=== PATIENT | male | born 1970 | race Caucasian/White ===

== ENCOUNTER → 2018-09-07 | Outpatient (CLI) | payer OTHER | LOC: FIMAGING 11:35 | PROVIDERS: ATTEND Orthopaedic Surgery Hand Surgery | DX: S46.011A Strain of muscle(s) and tendon(s) of the rotator cuff of right shoulder, initial encounter (principal); S46.211A Strain of muscle, fascia and tendon of other parts of biceps, right arm, initial encounter; M25.411 Effusion, right shoulder ==

== ENCOUNTER 2018-11-14 05:43 | Day surgery (SDC) | payer OTHER ==
--- NOTE | 2018-11-09 13:50 | SOAPPROG ---
SOAP Progress Note Assessment/Plan: H&P Name SHAUNNA IBRAHIM (48yo, M) ID# [id number] 1970 Service Dept[address] MAIN OFFICE Provider ZHEN CUELLAR PA-C Insurance Med Primary: [employer] (MEDICARE REPLACEMENT/ADVANTAGE - HMO) Insurance # : [id number] Prescription: DSTPSDIR - Member is eligible. details Chief Complaint Patient presents today to review his right shoulder MRI to evaluate for a massive RCT. Patient doing well but continues to have a lot of discomfort. Vitals None recorded. Allergies Reviewed Allergies NKDA Medications Reviewed Medications ELBOW SUPPORT 08/31/18 filled [facility] KNEE SUPPORT XL 08/31/18 filled [facility] PLASTIC BANDAGES - 200 COUNT 08/31/18 filled [facility] Simponi 50 mg/0.5 mL subcutaneous syringe 10/02/18 filled [facility] VITAMIN E 400 IU SYNTHETIC 08/31/18 filled [facility] Vaccines None recorded. Problems Reviewed Problems Arthritis of acromioclavicular joint - Onset: 09/18/2018 Biceps tendinitis - Onset: 09/18/2018, Right Subacromial impingement - Onset: 09/18/2018, Right Full thickness rotator cuff tear - Onset: 08/21/2018, Right Family History Reviewed Family History Mother - Arthritis - Heart disease Father - Arthritis - Heart disease - Malignant neoplastic disease Social History Reviewed Social History Smoking Status: Former smoker Occupation: on disability Alcohol intake: Occasional Alcohol-years of use: 25 Caffeine intake: Moderate Exercise level: Occasional Hand Dominance: Right Education: 12 Live alone or with others?: with others Surgical History Reviewed Surgical History Orthopaedic Surgery - 10/03/2007 Orthopaedic Surgery - 10/03/2006 Past Medical History Reviewed Past Medical History Arthritis: Y Screening None recorded. HPI This is a very pleasant 48 year old male with a significant history for ankylosing spondylitis and: LEFT: - two previous left shoulder arthroscopies RIGHT: - 11/01/07 -- right shoulder arthroscopy with SAD and labral debridement - 03/06/09 -- right shoulder MRI -- supraspinatus and infraspinatus tendinosis, full thickness tear distal supraspinatus - 08/20/18 -- increase in right shoulder pain and swelling following a fall onto his outstretched RU - 09/07/18 -- Right shoulder MRI -- Large full-thickness supraspinatus tendon tear with retraction and moderate muscular atrophy, partial tear distal subscapularis tendon, cephalad fibers, moderate tear long head biceps tendon through the rotator interval, undersurface distal infraspinatus tendinosis at the greater tuberosity, large right shoulder effusion, and acromioclavicular degenerative hyperostosis He presents today to discuss his treatment options. ROS ROS as noted in the HPI Physical Exam Patient is a 48-year-old male. Bilateral shoulder examination Inspection/palpation: Right: TTP overlying the SAS Left: Normal resting posture Shoulder ROM (R / L / Normal) Forward flexion: 20 / 170 / 170 Abduction: 20 / 160 / 160 Extension: 10 / 40 / 40 Shoulder strength (R / L / Normal) Deltoid : 4 / 5 / 5 Biceps: 5 / 5 / 5 Shoulder sensory (R / L / Normal) Axillary: + / + / + Assessment / Plan This is a very pleasant 48 year old male with a significant history for ankylosing spondylitis and: LEFT: - two previous left shoulder arthroscopies RIGHT: -11/01/07 -- right shoulder arthroscopy with SAD and labral debridement -03/06/09 -- right shoulder MRI -- supraspinatus and infraspinatus tendinosis, full thickness tear distal supraspinatus -08/20/18 -- increase in right shoulder pain and swelling following a fall onto his outstretched RUE -- s/s c/w a massive RCT - 09/07/18 -- Right shoulder MRI -- Large full-thickness supraspinatus tendon tear with retraction and moderate muscular atrophy, partial tear distal subscapularis tendon, cephalad fibers, moderate tear long head biceps tendon through the rotator interval, undersurface distal infraspinatus tendinosis at the greater tuberosity, large right shoulder effusion, and acromioclavicular degenerative hyperostosis For the right shoulder: - I have discussed with the patient the risks, benefits, alternatives and complications associated with both non-operative (specifically, observation) and operative (specifically, right shoulder arthroscopy with SAD, DCE, labral debridement, LHB tenotomy and/or tenodesis, and rotator cuff debridement and/or repair) forms of treatment - The patient fully understands the risks, benefits, alternatives, and complications associated with these forms of treatment and wishes to proceed with operative intervention as outlined above. - He has signed the informed consent form for surgery and surgery will be scheduled for the near future. 1. Pain of right shoulder joint M25.511: Pain in right shoulder 2. Full thickness rotator cuff tear - Right M75.121: Complete rotator cuff tear or rupture of right shoulder, not specified as traumatic 3. Subacromial impingement - Right M75.41: Impingement syndrome of right shoulder 4. Arthritis of acromioclavicular joint M13.819: Other specified arthritis, unspecified shoulder 5. Biceps tendinitis - Right M75.21: Bicipital tendinitis, right shoulder 11/09/18 13:50 ICD10 Worksheet Patient Problems: Problems Problem Status Onset Right shoulder pain Acute - ICD10 Problem Qualifiers (1) Right shoulder pain
[2018-11-14] MEDS ORDERED: LR 1,000 ML IV ONE (06:08)
[2018-11-14] MEDS ORDERED: LIDOCAINE 1% 2 ML INJ ID PRN (06:08)
[2018-11-14] MEDS ORDERED: ceFAZolin 2 GM/DEXTROSE 100 ML IV ONE (06:50)
--- NOTE | 2018-11-14 06:50 | PDHPUP ---
History & Physical Update H&P update statement: This history and physical update is based on an assessment of the patient which was completed after admission or registration (within 24 hours), but prior to the surgery/procedure. H&P update: H&P reviewed & patient examined, no change in patient's condition since H&P completed
[2018-11-14] MEDS ORDERED: CEFAZOLIN 1 GM/DEXTROSE/50 ML BAG IV ONE (06:55)
--- NOTE | 2018-11-14 06:58 | PDANEPAE ---
ANE Past Medical History - Cardiovascular History Hx Hypertension: No Hx Arrhythmias: No Hx Chest Pain: No Hx Coronary Artery / Peripheral Vascular Disease: No Hx CHF / Valvular Disease: No Hx Palpitations: No - Pulmonary History Hx COPD: No Hx Asthma/Reactive Airway Disease: No Hx Recent Upper Respiratory Infection: No Hx Oxygen in Use at Home: No Hx Sleep Apnea: Yes Sleep Apnea Screening Result - Last Documented: Positive Pulmonary History Comment: MILD SLEEP APNEA DX IN PAST - NO CPAP - Neurologic History Hx Cerebrovascular Accident: No Hx Seizures: No Hx Dementia: No - Endocrine History Hx Diabetes: No - Renal History Hx Renal Disorders: No - Liver History Hx Hepatic Disorders: No - Neurological & Psychiatric Hx Hx Neurological and Psychiatric Disorders: No - Cancer History Hx Cancer: No - Congenital Disorder History Hx Congenital Disorders: No - GI History Hx Gastrointestinal Disorders: No - Other Health History Other Health History: ANKYLOSING SPONYLITIS - Chronic Pain History Chronic Pain: Yes (SPINE,NECK,SHOULDERS) - Surgical History Prior Surgeries: SHOULDER L X2. CARPAL TUNNEL L. SHOULDER X1 ANE Review of Systems Review of Systems: - Exercise capacity METS (RN): 4 METS ANE Patient History - Allergies Allergies/Adverse Reactions: No Known Allergies Allergy (Verified 08/14/15 09:48) - Home Medications Home Medications: Herbals/Supplements -Info Only 11/06/18 [Last Taken 11/07/18] - NPO status NPO Since - Liquids (Date): 11/13/18 NPO Since - Liquids (Time): 22:30 NPO Since - Solids (Date): 11/13/18 NPO Since - Solids (Time): 19:00 - Smoking Hx Smoking Status: Former smoker ANE Labs/Vital Signs - Vital Signs Blood Pressure: 121/79 Heart Rate: 63 Respiratory Rate: 18 O2 Sat (%): 95 Height: 182.88 cm Weight: 107.955 kg ANE Physical Exam - Airway Neck exam: FROM Mallampati Score: Class 2 Mouth exam: normal dental/mouth exam - Pulmonary Pulmonary: no respiratory distress - Cardiovascular Cardiovascular: regular rate and rhythym - ASA Status ASA Status: II ANE Anesthesia Plan Anesthesia Plan: GA w LMA Regional Anesthesia: single shot NB
[2018-11-14] MEDS ORDERED: MIDAZOLAM 2 MG/2 ML VIAL IVP ONE (07:05)
[2018-11-14] MEDS ORDERED: BUPIVACAINE 0.5% 30 ML SDV ONE (07:06)
[2018-11-14] MEDS ORDERED: EPINEPHrine 30 MG/30 ML MDV (0.1 MG/0.1 ML) ONE (07:06)
[2018-11-14] MEDS ORDERED: LIDO/EPI 1% **for epidural** 30 ML SDV ONE (07:06)
[2018-11-14] MEDS ORDERED: BUPIVACAINE/EPI 0.5% 30 ML SDV ONE (07:11)
[2018-11-14] MEDS ORDERED: fentaNYL 100 MCG/2 ML INJ ONE ×5 (07:13→10:38)
[2018-11-14] MEDS ORDERED: LIDOCAINE 2% 100 MG/5 ML SYR ONE (07:13)
[2018-11-14] MEDS ORDERED: DEXAMETHASONE 4 MG/ML VIAL ONE ×2 (07:13)
[2018-11-14] MEDS ORDERED: PROPOFOL 200 MG/20 ML VIAL ONE (07:13)
[2018-11-14] MEDS ORDERED: ONDANSETRON 4 MG/2 ML VIAL ONE (07:14)
[2018-11-14] MEDS ORDERED: PHENYLEPHRINE 10 MG/ML SDV ONE (08:08)
[2018-11-14] MEDS ORDERED: NALOXONE HCL 0.4 MG/ML INJ IVP PRN (10:34)
[2018-11-14] MEDS ORDERED: fentaNYL 100 MCG/2 ML INJ IVP PRN (10:34)
[2018-11-14] MEDS ORDERED: HYDROCODONE/APAP 5/325 TAB PO PRN (10:34)
[2018-11-14] MEDS ORDERED: ALBUTEROL 3 ML DEYVIAL IH PRN (10:34)
[2018-11-14] MEDS ORDERED: ACETAMINOPHEN 500 MG TAB PO PRN (10:34)
[2018-11-14] MEDS ORDERED: ONDANSETRON 4 MG/2 ML VIAL IVP PRN (10:34)
[2018-11-14] MEDS ORDERED: MEPERIDINE 25 MG/0.5 ML AMP IVP PRN (10:34)
[2018-11-14] MEDS ORDERED: HYDROmorphONE/DILAUDID 2 MG/ML INJ IVP PRN (10:34)
[2018-11-14] MEDS ORDERED: KETOROLAC 30 MG/1 ML SDV ONE (10:40)
--- NOTE | 2018-11-14 11:08 | POSTANESTH ---
Post Anesthetic Evaluation Cardiovascular Status: Similar to Pre-Op Cond Respiratory Status: Similar to Pre-op Cond. Level of Consciousness/Mental Status: Mildly Sleepy, Arousable Pain Control: Adequate, Prn Tx Ordered Nausea/Vomiting Control: Adequate, Prn Tx Ordered Complications Possibly Related to Anesthesia: None Noted
[2018-11-14] MEDS ORDERED: HYDROCODONE/APAP 5/325 TAB ONE (12:28)
[2018-11-14 13:41] VITALS: BP 127/83
--- NOTE | 2018-11-19 07:11 | GOP ---
[f rep st] OPERATIVE REPORT PATIENT: RUCHI IBRAHIM DATE OF SERVICE: 11/14/18 PATIENT DATE OF : 1970 SURGEON: Anthony Hay M.D. KNOCK UP ASSEMBLER: Zoie Mendoza PA-C Mrs. Titus assistance was medically necessary for patient positioning and the retraction of vital structures. ANESTHESIA: General / regional PRE-OPERATIVE DIAGNOSES: Right shoulder subacromial impingement (ICD-10 code M75.51 -- right shoulder bursitis) Right shoulder acromioclavicular joint arthritis (ICD-10 code M13.111 -- right shoulder acromioclavicular joint arthritis) Right shoulder SLAP tear (ICD-10 code S43.431D -- right shoulder superior glenoid labrum lesion) Right shoulder biceps tendinitis (ICD-10 code M75.21 -- right shoulder bicipital tendinitis) Right shoulder rotator cuff tear (ICD-10 code S46.001A -- right shoulder rotator cuff tear) POST-OPERATIVE DIAGNOSES: Right shoulder subacromial impingement (ICD-10 code M75.51 -- right shoulder bursitis) Right shoulder acromioclavicular joint arthritis (ICD-10 code M13.111 -- right shoulder acromioclavicular joint arthritis) Right shoulder SLAP tear (ICD-10 code S43.431D -- right shoulder superior glenoid labrum lesion) Right shoulder biceps tendinitis (ICD-10 code M75.21 -- right shoulder bicipital tendinitis) Right shoulder rotator cuff tear (ICD-10 code S46.001A -- right shoulder rotator cuff tear) OPERATIVE PROCEDURES: CPT code 61594 - Right shoulder arthroscopic subacromial decompression CPT code 54369 - Right shoulder arthroscopic debridement, extensive CPT code 73643 - Right shoulder arthroscopic distal clavicle excision CPT code 48181 - Right shoulder arthroscopic rotator cuff repair CPT code 26933 - Right shoulder long head of biceps tenotomy CPT code 74934 Right shoulder subpectoral biceps tenodesis EBL: 3cc COMPLICATIONS: None IMPLANTS: Two Arthrex 5.5mm bio-composite corkscrew anchors triple loaded with # 2 Fiber Wire, two Arthrex 4.75mm bio-composite Swivel-Lock anchors, one Arthrex proximal biceps tenodesis button with #2 Fiber Wire BRIEF CLINICAL NOTE: This is a very pleasant 48 year old male with a significant history for right shoulder subacromial impingement, acromioclavicular joint arthritis, labral tears, long head of biceps tendinitis , and a rotator cuff tear. As such, I have discussed the risks, benefits, alternatives, and complications associated with both non-operative (specifically , observation, activity modifications, NSAIDs, PT, injection) and operative ( specifically, right shoulder arthroscopy with subacromial decompression, distal clavicle excision, labral debridement, long head of biceps tenotomy and/or tenodesis and rotator cuff debridement and/or repair) forms of treatment. The patient fully understands the risks, benefits, alternatives, and complications associated with both forms of treatment and wishes to proceed with operative intervention as outlined above. The patient has signed the informed consent form for surgery. OPERATIVE NOTE: On the day of surgery, all of the patients questions were answered. The patient was then transferred from the pre-operative area into the operating room and a formal, Time-Out procedure was performed. The patient was identified by name, medical record number, social security number, and date of . In addition, the patients right upper extremity was identified as the correct portion of the patients body for surgery with the patients right shoulder being identified as the correct portion of that extremity for surgery. The anesthesia team administered pre-operative antibiotics for prophylaxis. The patient was then transferred to the operating room table and placed in the beach chair position while padding all bony prominences. The extremity was then prepped and draped in the normal sterile fashion. A sterile marking pen was utilized to markie out standard posterior, lateral, and anterior arthroscopic portal incisions. An 18-gauge spinal needle was used to localize the glenohumeral joint through the posterior portal site and the joint was insufflated with 60cc of a 50:50 mixture of 1% lidocaine with 1:200,000 components of epinephrine and normal saline. A number 11-blade was utilized to incise the skin at the posterior portal site. The blunt obturator and arthroscopic cannula were then advanced through the posterior portal incision into the glenohumeral joint. The arthroscope was inserted and the shoulder was brought into external rotation. An 18-gauge spinal needle was used to locate the anterior portal site with outside-in technique. A medium-sized Mytrusrex corkscrew cannula was inserted through the anterior portal site. A diagnostic arthroscopy was performed in the glenohumeral space. The following structures were identified and examined with the following findings: Glenohumeral diagnostic arthroscopy Glenoid: mild degenerative changes Humeral head: mild degenerative changes Glenoid labrum Anterior labrum: degenerative fraying Superior labrum: degenerative fraying Posterior labrum: intact Inferior labrum: intact Biceps tendon: high-grade partial tearing Glenohumeral ligaments: SGHL: intact MGHL: intact AIGHL: intact PIGHL: intact Undersurface of rotator cuff: Subscapularis: intact Supraspinatus: full thickness tear Infraspinatus: full thickness tear anteriorly A 4.0mm aggressive cutter was inserted through the anterior portal and an extensive debridement was performed within the glenohumeral joint including the glenoid, the humeral head, and the labrum. The cautery wand was inserted through the anterior portal and the long head of the biceps tendon was released off of the supraglenoid tubercle (long head of biceps tenotomy). The arthroscope was then removed from the glenohumeral joint and the posterior cannula was re-directed into the subacromial space. The arthroscope was re- inserted into the posterior cannula. An 18-gauge spinal needle was used to localize a straight lateral portal with outside-in technique. A large Arthrex corkscrew cannula was inserted through the lateral portal incision. The 4.0mm aggressive cutter and the cautery wand were utilized to excise the subacromial- subdeltoid bursa. A diagnostic arthroscopy was performed in the subacromial space. The following structures were identified and examined with the following findings: Subacromial space diagnostic arthroscopy Subacromial / subdeltoid bursa: hypertrophic and inflamed Acromion: undersurface spurring Coracoacromial ligament: intact Acromioclavicular joint: undersurface spurring, arthritis Bursal surface of rotator cuff muscles: Supraspinatus: full thickness tear Infraspinatus: full thickness tear anteriorly A 4.0mm barrel haider was used to perform both an acromioplasty as well as an arthroscopic distal clavicle excision. Attention was then turned to the rotator cuff. The torn edge of the rotator cuff was thoroughly debrided with the 4.0mm aggressive cutter. The rotator cuff footprint was also debrided with both the aggressive cutter and the 4.0mm barrel haider. The following anchors were then placed in the following configuration. Medial row Anterior: Arthrex 5.5mm bio-composite corkscrew anchor triple loaded with #2 Fiber Wire Middle: Arthrex 5.5mm bio-composite corkscrew anchor triple loaded with #2 Fiber Wire Lateral row Anterior: Arthrex 4.75mm bio-composite swivel-lock anchor Middle: Arthrex 4.75mm bio-composite swivel-lock anchor Each of the suture strands from the medial row anchors were passed through the cuff with the SHOP.CA suture passer to create several inverted horizontal mattress sutures. Each suture pair from the medial row anchors was then sequentially tightened and tied. The tails from the tied medial row anchor sutures were then passed through the tips of the lateral row anchors prior to insertion. The arm was brought through internal rotation, external rotation, adduction and abduction. All motions demonstrated an excellent repair of the cuff to the footprint. Meticulous hemostasis was then obtained in the subacromial space with the cautery wand. The arthroscope and all instruments were then removed from the joint and attention was turned to the anterior proximal arm. A sterile marking pen was utilized to markie out a 2cm longitudinal incision along the inferior border of the pectoralis major tendon in-line with the bicipital groove. A number 15 blade was used to incise the skin and meticulous hemostasis was obtained in the subcutaneous plane with bovie cautery. Blunt dissection was performed to expose the long head of the biceps tendon. The tendon was pulled out through the incision and shortened with straight tenotomy scissors. A #2 Fiber Wire was passed through the end of the biceps tendon with a modified Krackow stitch. The 3.2mm drill pin was then used to drill a bi- cortical tunnel through the proximal humerus. The Fiber Wire tails from the biceps tendon were then passed through an Arthrex proximal biceps tenodesis button and the button was inserted into the hole in the humerus. The button was flipped on the far side of the far cortex. The Fiber Wire tails were then tightened to reduce the biceps tendon to the anterior surface of the humerus. The tails were then threaded through the biceps tendon one more time with a free needle and tied to each other. All wounds were copiously irrigated with sterile normal saline. The subcutaneous plane was re-approximated with 3-0 vicryl sutures and the skin was re-approximated with a running 4-0 moncryl. A mixture of 1% lidocaine and 0.5% Marcaine was utilized to provide local anesthesia at the incision sites. The skin was cleaned with sterile normal saline and dried. Dermabond was applied to all of the incisions followed by Xeroform gauze dressings, a dry sterile dressing, and an occlusive Tegaderm dressing. The arm was placed into a sling and swathe. The patient was reversed from anesthesia and transferred from the operating room table onto the post-operative gurney and transferred from the operating room to the post-anesthesia care unit in stable condition. POST-OPERATIVE PLAN: The patient will remain in the current dressing and sling for the next 2 weeks. I will see the patient back in the office in 2 weeks for a wound check and initiation of gentle forearm, elbow, and shoulder ROM exercises. /[id number]/MODL MTDD
== END 2018-11-14 13:55 | disposition home or self-care (01) ==
LOC: FSGY 05:43
PROVIDERS: ATTEND Orthopaedic Surgery Hand Surgery
DX: S43.421A Sprain of right rotator cuff capsule, initial encounter (principal); M75.81 Other shoulder lesions, right shoulder; M75.41 Impingement syndrome of right shoulder; M75.21 Bicipital tendinitis, right shoulder; M75.51 Bursitis of right shoulder; M19.011 Primary osteoarthritis, right shoulder; F17.200 Nicotine dependence, unspecified, uncomplicated; W19.XXXA Unspecified fall, initial encounter; Y92.9 Unspecified place or not applicable; Y93.9 Activity, unspecified; Y99.9 Unspecified external cause status
CPT/HCPCS: C1713; J0171; J0690; J1100; J1885; J2001; J2250; J2270; J2370; J2405; J2704; J3010